=== PATIENT | male | born 1970 | race Caucasian/White ===

== ENCOUNTER 2017-08-29 01:36 | Emergency (ER) | payer OTHER ==
[~2017-08-29] VITALS: Ht 180.3 cm; Wt 79.0 kg
[2017-08-29] MEDS ORDERED: ondansetron/PF 4mg/2ml inj IV ONE (01:50)
[2017-08-29] MEDS ORDERED: normal saline 1000ml 1,000 ML IV ONE (01:50)
[2017-08-29] MEDS ORDERED: ketorolac trometh. 30mg/ml inj. IV ONE (01:50)
[2017-08-29 02:25] LABS: ALBUMIN 3.9 G/DL (3.4-5.0); ANION GAP 9 (8-16); BLOOD UREA NITROGEN 17 MG/DL (7-18); BUN/CREATININE RATIO 13.8 (5.4-32.0); CALCIUM 9.2 MG/DL (8.5-10.1); CHLORIDE 107 MMOL/L (99-107); CREATININE 1.23 MG/DL (0.60-1.10); GLUCOSE 115 MG/DL (70-104); POTASSIUM 3.9 MMOL/L (3.5-5.1); SODIUM 143 MMOL/L (135-145); TOTAL CARBON DIOXIDE 27.3 MMOL/L (24-32); eGFR 63 ML/MIN
[2017-08-29 03:07] LABS: CLARITY,URINE SLIGHTLY CLOUDY (Clear); COLOR,URINE YELLOW (Yellow); GLUCOSE, URINE NEGATIVE (Neg); KETONES,URINE NEGATIVE (Neg); LEUKOCYTE ESTERASE ,URINE TRACE (Neg); NITRITES, URINE NEGATIVE (Neg); OCCULT BLOOD,URINE LARGE (Neg); PH,URINE 5.5 (4.8-8.0); PROTEIN,URINE 30 mg/dl (Neg); UROBILINOGEN,URINE 0.2 E.U/dL (0.2-1.0)
[2017-08-29 03:08] VITALS: BP 143/96
[2017-08-29 03:14] LABS: UA COLLECTION TYPE CLN CATCH MIDSTREAM
[2017-08-29 03:15] LABS: RBC,URINE TNTC /HPF (0-2); WBC,URINE 20-30 /HPF (0-4)
[2017-08-29 03:17] LABS: BACTERIA,URINE FEW /HPF (Neg); MUCUS STRANDS MODERATE /LPF (Neg); SQUAMOUS EPITHELIAL CELL,UR FEW /LPF (FEW)
[2017-08-29] MEDS ORDERED: ONDA8TAB9 PO (03:24)
[2017-08-29] MEDS ORDERED: HYDR-3965 PO (03:24)
== END 2017-08-29 03:43 | disposition home or self-care (01) ==
LOC: ER 01:37
DX: N20.0 Calculus of kidney (principal); Z79.899 Other long term (current) drug therapy
CPT/HCPCS: 36415; 80048; 81001; 87088; 96361; 96374; 96375; 99284; J1885; J2405